=== PATIENT | female | born 1985 | race African-American/Black ===

== ENCOUNTER 2016-12-13 09:06 | Emergency (ER) | payer SELFPAY ==
[~2016-12-13] VITALS: Ht 170.2 cm; Wt 85.0 kg
[2016-12-13 09:08] VITALS: BP 130/82; PULSE 80; RESP 20; TEMP 97.8; O2SAT 97
--- NOTE | 2016-12-13 10:13 | PD ---
HPI Chief Complaint: Cold / Flu Symptoms Time Seen by Provider: 10:13 Travel History International Travel<30 days: No Contact w/Intl Traveler<30days: No Traveled to known affect area: No History of Present Illness HPI 31-year-old female presents to emergency department for evaluation of sinus pressure, congestion, and pain in her teeth worsening of the last month. She states the nasal drip is now brought into her lungs and she is having a productive cough. Subjective fever chills. No nausea vomiting. No diarrhea. No other symptoms to report. PFSH Past Medical History Medical History: Denies Significant Hx Respiratory: Yes (ASTHMA) Social History Alcohol Use: No Tobacco Use: No Substance Use: No Allergies-Medications (Allergen,Severity, Reaction): Coded Allergies: No Known Allergies (Unverified , 12/13/16) Reported Meds & Prescriptions Reported Meds & Active Scripts Active Augmentin (Amoxicillin-Clavulanate) 875-125 mg Tab 875 Mg PO BID 10 Days not for use in CrCl <30 ml/min. Fluticasone Nasal Tram 50 Mcg/Act Naspr 50 Mcg EACH NARE BID 50 mcg/spray Review of Systems Except as stated in HPI: all other systems reviewed are Neg Physical Exam Narrative GENERAL: Well-nourished, well-developed female patient in no acute distress SKIN: Warm and dry. HEAD: Normocephalic. Tenderness to palpation of the frontal and maxillary sinuses. EYES: No scleral icterus. No injection or drainage. ENT: Mucosa pink and moist. No erythema without exudates. Postnasal drip. No uvular edema. No uvular, palatal, or tonsillar deviation. Airway patent. Nasal turbinates appear inflamed without nasal blood, purulent drainage or septal hematoma. NECK: Supple, trachea midline. No JVD or lymphadenopathy. CARDIOVASCULAR: Regular rate and rhythm without murmurs, gallops, or rubs. RESPIRATORY: Breath sounds equal bilaterally. No accessory muscle use. GASTROINTESTINAL: Abdomen soft, non-tender, nondistended. MUSCULOSKELETAL: No cyanosis, or edema. BACK: Nontender without obvious deformity. No CVA tenderness. Data Data Last Documented VS Vital Signs Date Time Temp Pulse Resp B/P Pulse Ox O2 Delivery O2 Flow Rate FiO2 12/13/16 10:38 98 21 12/13/16 09:08 97.8 80 20 130/82 Room Air Orders Albuterol-Ipratropium Neb (Duoneb Neb) (12/13/16 10:15) Dexamethasone Inj (Decadron Inj) (12/13/16 10:15) Chest, Single Ap (12/13/16 ) Group A Rapid Strep Screen (12/13/16 10:20) Strep Culture (Group A) (12/13/16 10:25) MDM Medical Decision Making Medical Screen Exam Complete: Yes Emergency Medical Condition: Yes Medical Record Reviewed: Yes Differential Diagnosis Bacterial sinusitis versus viral URI versus pneumonia versus influenza Narrative Course 31-year-old female presents to emergency room for evaluation. Chest x-ray is negative for acute cardiopulmonary disease. Influenza is negative. Rapid strep screen is negative. Due to patient's duration of symptoms and worsening, she'll be started on antibiotics for bacterial sinusitis. She is encouraged to follow-up with primary care provider and return immediately to the emergency department with any acute worsening of symptoms. Diagnosis Primary Impression: Bacterial sinusitis Referrals: Ear / Nose / Throat Specialist Primary Care Physician Patient Instructions: General Instructions, Sinusitis (ED) Departure Forms: Tests/Procedures, Work Release Enter return to work date: Dec 15, 2016 Additional Instructions: Humidified air may help to alleviate symptoms [id number] antihistamine such as Benadryl or cetirizine as directed on the package may help to alleviate symptoms Follow-up with her primary care provider Return immediately to the emergency department with any acute worsening symptoms Med/Other Pt SpecificInfo: Prescription(s) given Scripts Amoxicillin-Clavulanate (Augmentin)875-125 mg Fsx675 Mg PO BID 10 Days Ref 0 not for use in CrCl <30 ml/min. Prov:Krista Crane 12/13/16 Fluticasone Nasal Tram 50 Mcg/Act Naspr50 Mcg EACH NARE BID #1 BOTTLE Ref 0 50 mcg/spray Prov:Krista Crane 12/13/16 Disposition: 01 DISCHARGE HOME Condition: Stable Krista Crane Dec 13, 2016 10:13
[2016-12-13] MEDS ORDERED: RESP: ALBUTEROL 2.5 MG/IPRATROPIUM 0.5 MG NEB (SCH) NEB ONE (10:15)
[2016-12-13] MEDS ORDERED: DEXAMETHASONE SOD PHOS 4 MG/ML VIAL IM ONE (10:15)
[2016-12-13 10:38] VITALS: O2SAT 98
--- NOTE | 2016-12-13 11:25 | RADRPT ---
EXAM DATE/TIME: 12/13/2016 10:18 [facility] COMPARISON: No previous studies available for comparison. INDICATIONS : Cough. Short of breath. MEDICAL HISTORY : None. SURGICAL HISTORY : None. ENCOUNTER: Initial ACUITY: 3 days PAIN SCORE: 0/10 LOCATION: Bilateral chest FINDINGS: Portable AP view of the chest demonstrates a normal-sized cardiac silhouette. No effusion, consolidat ion, or pneumothorax is visualized. The bones and soft tissues demonstrate no acute abnormality. CONCLUSION: No acute cardiopulmonary abnormality is identified. Sami Ta MD on December 13, 2016 at 11:23 Board Certified Radiologist. This report was verified electronically.
[2016-12-13] MEDS ORDERED: AUGM875T PO (11:32)
[2016-12-13] MEDS ORDERED: FLUT50SP EACH NARE (11:32)
== END 2016-12-13 11:53 | disposition home or self-care (01) ==
LOC: NEPB 09:06
DX: J32.8 Other chronic sinusitis (principal); B96.89 Other specified bacterial agents as the cause of diseases classified elsewhere; K08.89 Other specified disorders of teeth and supporting structures; R05 Cough; Z87.09 Personal history of other diseases of the respiratory system
CPT/HCPCS: 71010; 87081; 87880; 94664; 96372; 99283; J1100